=== PATIENT | female | born 1995 | race Caucasian/White ===

== ENCOUNTER 2021-01-20 08:59 | Outpatient (CLI) | payer BC | END 2021-01-20 09:00 | disposition home or self-care (01) | LOC: BICULT 08:59 | PROVIDERS: ATTEND Student in an Organized Health Care Education/Training Program | DX: N63.21 Unspecified lump in the left breast, upper outer quadrant (principal) ==

== ENCOUNTER 2024-09-25 16:11 | Emergency (ER) | payer BC ==
[2024-09-25 17:22] LABS: #Basophils 0.04 10x3/uL (0.0-0.2); #Eosinophils 0.10 10x3/uL (0.0-0.7); #Monocytes 0.52 10x3/uL (0.11-0.59); #Neutrophils 4.01 10x3/uL (1.40-6.50); %Basophils 0.6 % (0.0-1.0); %Eosinophils 1.5 % (0.0-10.0); %Lymphocytes 31.8 % (21.0-51.0); %Monocytes 7.6 % (0.0-10.0); %Neutrophils 58.2 % (42.0-75.0); Hematocrit 38.8 % (36.0-47.0); Hemoglobin 13.3 g/dL (12.0-16.0); Mean Corpuscular Hemoglobin 28.5 pg (27.0-31.0); Mean Corpuscular Volume 83.3 fL (78.0-98.0); Platelet Count 196 10x3/uL (130-400); Red Blood Cell (RBC) Count 4.66 mill/uL (4.20-5.40); White Blood Cell (WBC) Count 6.88 10x3/uL (4.8-10.8)
[2024-09-25 17:33] LABS: BHCG - Serum Negative (NEGATIVE); Pregs Control Background? CLEAR/WHITE (CLR/WHITE); Pregs Control Bar Appear? YES (CONTROL BAR)
[2024-09-25 17:45] LABS: ALT (SGPT) 33 U/L (Less than 34); AST (SGOT) 22 U/L (11-34); Acetaminophen Less than 10 mcg/mL (Less than 10); Albumin 4.3 g/dL (3.1-4.5); Alkaline Phosphatase 77 U/L (40-110); Anion Gap 14 mmol/L (10-20); BUN (Urea Nitrogen) 16 mg/dL (7.0-18.7); Bilirubin, Total 0.3 mg/dL (0.3-1.2); Calc. Creatinine Clearance 0 mL/min (70-130); Calcium 9.2 mg/dL (7.8-10.44); Carbon Dioxide 24 mmol/L (22-29); Chloride 106 mmol/L (98-107); Globulin 3.4 g/dL (2.4-3.5); Glucose 83 mg/dL (70-105); Potassium 3.8 mmol/L (3.5-5.1); Salicylate Less than 8.0 mg/dL (Less than 8.0); Sodium 140 mmol/L (136-145)
[2024-09-25 18:48] LABS: CAUTI Indications for Culture Alt mental st,lethar; Cocaine Metabolite Screen Negative (Negative); Glucose, Urine (Dipstick) Normal (Negative); Leukocyte Negative Leu/uL (Negative); Protein, Urine (Dipstick) Negative (Neg-Trace); RBC/HPF 0-3 HPF (0-3); Specific Gravity, Urine 1.020 (1.002-1.036); THC/Cannabinoid Screen Negative (Negative); Tricyclic Screen Negative (Negative); WBC/HPF 0-3 HPF (0-3)
[2024-09-25 18:51] LABS: Bacteria/HPF 1+ HPF (None Seen); Urine Culture Reflex No No
== END 2024-09-25 21:50 ==
LOC: ERS 16:11
DX: R45.851 Suicidal ideations (principal); Z55.6 Problems related to health literacy
CPT/HCPCS: 80053; 80306; 80307; 81001; 84443; 84703; 85025; 93005; 99285